=== PATIENT | female | born 1985 | race Caucasian/White ===

== ENCOUNTER 2018-07-25 05:55 | Day surgery (SDC) | payer OTHER ==
[~2018-07-25] VITALS: Ht 160 cm; Wt 83.0 kg
--- NOTE | ~2018-07-25 | OR ---
[facility] [address] [place], [place] [address] Draft DATE OF OPERATION: 07/25/2018 SURGEON: Sweta Tabor MD PREOPERATIVE DIAGNOSIS: Intrauterine at 14+ weeks, status post LEEP x2. POSTOPERATIVE DIAGNOSIS: Intrauterine at 14+ weeks, status post LEEP x2. PROCEDURE: De Anda cerclage. ANESTHESIA: Spinal with IV sedation. ESTIMATED BLOOD LOSS: 5 mL. DRAINS: None. INDICATIONS AND FINDINGS: The patient is a 33-year-old female, 3, para 1, SAB 1, who is now 14 weeks 5 days by early ultrasound, who is being admitted for cerclage as she has undergone a LEEP procedure x2 for CIS. She has undergone a LEEP since her last delivery. Her last delivery was uncomplicated, but at this point, her cervix was very short and it was felt that she may have issues with incompetent cervix and cerclage advised. At the time of surgery, her cervix was indeed short but closed. The uterus was enlarged approximately 15 week size. DESCRIPTION OF PROCEDURE: The patient was prepped and draped in the dorsal lithotomy position. A weighted speculum was placed in the anterior lip of the cervix was visualized. The cervix appeared about 1 cm in length. A 5 mm Mersilene band was then placed in a pursestring manner starting at 12 o'clock as close as possible to the vaginal mucosa and this was placed circumferentially and then tied at 12 o'clock. Following this, the ends of this of the Mersilene band were stitched together with a 2-0 silk. Following this, instruments were removed and the patient was taken to the recovery room in good condition. She tolerated PATIENT NAME: VASILE POLANCO OPERATIVE REPORT DATE OF : [birth year] REPORT #: [id number] PHYSICIAN: SWETA TABOR MD PCP: MACIEJ OLIVARES MD REPORT IS CONFIDENTIAL AND NOT TO BE RELEASED WITHOUT AUTHORIZATION [address] [address] [facility] very well. MD MICHAEL Castrejon/MADDIE /[id number] cc: Rosi Morales Copies: ~ PATIENT NAME: VASILE POLANCO OPERATIVE REPORT DATE OF : [birth year] REPORT #: [id number] PHYSICIAN: SWETA TABOR MD PCP: MACIEJ OLIVARES MD REPORT IS CONFIDENTIAL AND NOT TO BE RELEASED WITHOUT AUTHORIZATION
[~2018-07-25 05:55] MED LIST: PRENATAL GUMMI1 EACH PO; PRENATAL VITAM1 EACH PO; VITAMIN D2000 UNI1 PO
[2018-07-25] MEDS ORDERED: CALCIUM500 M1 PO (06:03)
--- NOTE | 2018-07-25 08:32 | NUR ---
PT RETURNS TO DS ROOM 5 ON RA. PT AWAKE AND ORIENTED. SPINAL AT T8. PT DENIE DMITRIY/NAUSEA. WATER AND FOOD PROVIDED. VSS. CUAUHTEMOC PAD AND MESH UNDIES IN PLACE. NO DRAINAGE NOTED. AT BEDSIDE. WARM BLANKETS AND BEIR HUGGER PROVIDED. CALL LIGHT WITHIN REACH
--- NOTE | 2018-07-25 08:32 | NUR ---
07/25/18 0832 Tiffany Carcamo SN 0747- PT IN PACU. PT SITTING UP IN BED IN [place] CONVERSING WITH STAFF MEMBERS. RESPS EVEN AND UNLABORED, 02 SAT HIGH 90S ON RA. PT DENIES PAIN, NAUSEA AND DIZZINESS AT THIS TIME. 0750- MARIANNA BARNEY AT BEDSIDE EDUCATING PT ON PROCEDURE. PT CONVERSING APPROPRIATELY. ALL QUESTIONS ANSWERED. 0751- DR NOLAND AT BEDSIDE EDUCATING PT ON PROCEDURE. PT ASKING APRORIATE QUESTIONS. ALL QUESTIONS ANSWERED. 0755- PT PROVIDED WITGH PO WATER PER REQUEST. PT SITTING UP IN HIGH FOWLERS TOELRATING WELL AND DRINKING FLUIDS INDEPENDENTLY. RESPS EVEN AND UNALBORED, 02 SAT HGIH 90S ON RA. PT DENIES PAIN NAUSEA AND DIZZINESS AT THIS TIME. PT EDUCATED BY GINNY GOLD ON NEED FOR INDOMETHACIN SUPPOSITORY. PT VERBALZIED UNDERSTANDING AND ALL QUESTIONS ANSWERED. 0757- DR NOLAND AT BEDSIDE AGAIN PER PT REQUEST. EDUCATING PT ON FUTURE PREGNANCIES AFTER THIS PROCEDURE. PT CONVERSING APPROPRIATELY AND ALL QUESTIONS ANSWERED. 0810- PT SITTING UP IN BED IN [place] TOLERATING WELL. RESPS EVEN AND UNLABORED, 02 SAT HIGH 90S ON RA. PT DENIES PAIN NAUSEA AND DIZZINESS AT THIS TIME. 0820- PT OUT OF PACU. TAKEN TO DAY SURGERY BY BED. VERBAL REPORT GIVEN TO GINNY BOYCE. ALL QUESTIONS ANSWERED.
[2018-07-25] MEDS ORDERED: INDOCIN50 MG PO (08:45)
--- NOTE | 2018-07-25 09:10 | NUR ---
IN PT ROOM TO DISCUSS PLAN OF CARE AND FOLLOW UP APPT. PT AGREEABLE. COFFEE PROVIDED. NO OTHER NEEDS AT THIS TIME. CALL LIGHT WITHIN REACH
--- NOTE | 2018-07-25 09:35 | NUR ---
VSS. PT DENIES PAIN/NAUSEA. REPORTS A NEED TO VOID. 2 NURSE ASSIST TO BEDSIDE COMMODE. PT UNABLE TO VOID AT THIS TIME. 2 PERSON ASSIST BACK TO BED. SCDS ON AND APPLIED. CALL LIGHT WITHIN REACH. SPINAL RESOLVING AND NOW AT L1.
--- NOTE | 2018-07-25 10:27 | NUR ---
PT WATCHING TV AND ON CELLPHONE. PT DENIES PAIN AND NO NEW DRAINAGE NOTED ON CUAUHTEMOC PAD. VSS. PT REPORTS FEELING IN THIGHS AND EVERYTHING ABOVE THE KNEE. SPINAL RESOLVING. SCDS REMIAN IN PLACE. AT BEDSIDE. CALL LIGHT WITHIN REACH
--- NOTE | 2018-07-25 12:35 | NUR ---
PT REQUESTING TO USE BEDSIDE COMMODE. PT STANDS AND AMBULATES TO COMMODE AND REPORTS NO DIFFICULTIES. PT VOIDS 300 ML CLEAR YELLOW URINE AND REPORTS BLADDER FEELING EMPTY. PT REPORTS NO NUBNESS AND FEELING HAS RETURNED TO HER LOWER EXTREMITIES. SPINAL RESOLVED. PT DENIES PAIN AND NAUSEA BUT REPORTS SOME GAS PAIN. VSS. IV DC'D WNL. DC CRITERIA MET. DC INSTRUCTIONS WITH PRECAUTIONS PROVIDED TO PT. PT VERBALIZES UNDERTANDING AND DENIES FURTHER QUESTIONS. PRESCRIPTION WITH EDUCATION GIVEN. PT TRANSPORTED IN WHEELCHAIR TO VEHICLE DRIVEN BY IN STBALE CONDITION. TO FOLLOW UP WITH IN 2 WEEKS
== END 2018-07-25 12:30 | disposition home or self-care (01) ==
LOC: DS 05:55 → OPS 05:55 → DS 06:45 → OPS 06:45
PROVIDERS: Obstetrics & Gynecology
PROC: 0UVC7ZZ Restriction of Cervix, Via Natural or Artificial Opening (ICD-10-PCS; principal; 2018-07-25 06:45)
DX: O26.872 Cervical shortening, second trimester (principal); O99.332 Smoking (tobacco) complicating pregnancy, second trimester; F17.210 Nicotine dependence, cigarettes, uncomplicated; O99.212 Obesity complicating pregnancy, second trimester; O99.342 Other mental disorders complicating pregnancy, second trimester; F32.9 Major depressive disorder, single episode, unspecified; Z3A.14 14 weeks gestation of pregnancy; Z79.899 Other long term (current) drug therapy
CPT/HCPCS: 00940; J1100; J1644; J1885; J2405; J2704; J2765; J3010; J7120

== ENCOUNTER 2019-01-14 16:01 | Inpatient (IN) | payer OTHER ==
[~2019-01-14] VITALS: Ht 160 cm; Wt 93.0 kg
[~2019-01-14 16:01] MED LIST changes: +CALCIUM500 M1 PO; +INDOCIN50 MG PO
--- NOTE | 2019-01-14 17:34 | PR ---
[facility] [address] [facility] [place] [place] [address] Signed Progress Notes IP Datetime Report Generated by CPN: 01/14/2019 17:34 PROGRESS NOTES: [id number] Impression: Normal progression of labor Procedures: Sterile Vag Exam Plan: Continue present management Informed Consent Obtain: Vaginal Delivery; Risks, Benefits and Alternatives Discussed VITAL SIGNS: [id number] Vital Signs: Reviewed; Within Normal Limits EXAM: [id number] Dilatation: 4.0 Effacement: 90 Station: -2 Uterine Contractions: q 1 to 4 min MEMBRANES: [id number] Membrane Status: Ruptured Amniotic Fluid Color: Clear Comments: Progressing. Will continue. Fetus A: [id number] FHR Baseline: 135 Variability: Moderate 6-25bpm Accelerations: 15X15 Decelerations: None FHR Category: Category I Presentation: Vertex Comments on Fetus A: No evidence of metabolic acidosis Fetus B: [id number] Signing Physician: Sweta Tabor MD Copies: ~ *Electronically Signed* 01/14/19 1734 SWETA TABOR MD PATIENT NAME: VASILE POLANCO PROGRESS NOTE DATE OF : [birth year] PHYSICIAN: SWETA TABOR MD RPT #: [id number] REPORT IS CONFIDENTIAL AND NOT TO BE RELEASED WITHOUT AUTHORIZATION
--- NOTE | 2019-01-14 19:20 | PR ---
[facility] [address] [place], [place] [address] Signed Progress Notes IP Datetime Report Generated by CPN: 01/14/2019 19:19 PROGRESS NOTES: [id number] Impression: Non-reassuring heart rate Procedures: Scalp Electrode Plan: Continue present management Informed Consent Obtain: Vaginal Delivery; Risks, Benefits and Alternatives Discussed VITAL SIGNS: [id number] Vital Signs: Reviewed; Within Normal Limits EXAM: [id number] Dilatation: 4.0 Effacement: 90 Station: -2 Uterine Contractions: q 1 to 4 min MEMBRANES: [id number] Membrane Status: Ruptured Amniotic Fluid Color: Clear Comments: Bradycardia episode for about 7 minutes after Epidural, with slight decrease in BP, so given Ephedrine; Patient also given O2, increase IV, turned to right side with baseline return to 130's and good variability. electrode applied and adjusted (cord replaced because not pickling up well). At same time patient c/o numbness up to left neck, normal feeling on right. Anesthesia here for evaluation - patient head elevated and Epidural pump turned off. WIll co ntinue to follow Fetus A: [id number] FHR Baseline: 130 Variability: Moderate 6-25bpm Accelerations: 15X15 Decelerations: None FHR Category: Category I Presentation: Vertex Comments on Fetus A: No evidence of metabolic acidosis Fetus B: [id number] Signing Physician: Armando Renteria MD Copies: ~ *Electronically Signed* 01/14/191918 ARMANDO RENTERIA MD PATIENT NAME: VASILE POLANCO PROGRESS NOTE DATE OF : [birth year] PHYSICIAN: ARMANDO RENTERIA MD RPT #: [id number] REPORT IS CONFIDENTIAL AND NOT TO BE RELEASED WITHOUT AUTHORIZATION
--- NOTE | 2019-01-14 19:24 | PR ---
[facility] [address] [facility] [place], [place] [address] Signed Progress Notes IP Datetime Report Generated by CPN: 01/14/2019 19:24 PROGRESS NOTES: [id number] Impression: Reassuring heart rate; Slow Progression of Labor Procedures: Intrauterine Pressure Catheter; Sterile Vag Exam Plan: Continue present management Informed Consent Obtain: Vaginal Delivery; Risks, Benefits and Alternatives Discussed VITAL SIGNS: [id number] Vital Signs: Reviewed; Within Normal Limits EXAM: [id number] Dilatation: 4.0 Effacement: 90 Station: -2 Uterine Contractions: difficult to monitor MEMBRANES: [id number] Membrane Status: Ruptured Amniotic Fluid Color: Clear Comments: Slow progress. FHTs have recovered nicely at this time. Suspect inadequate contractions at this time. Will place IUPC and add pitocin as needed. Fetus A: [id number] FHR Baseline: 125 Variability: Moderate 6-25bpm Accelerations: 15X15 Decelerations: Prolonged FHR Category: Category II Presentation: Vertex Comments on Fetus A: prolonged decel earlier now resolved Fetus B: [id number] Signing Physician: Sweta Tabor MD Copies: ~ *Electronically Signed* 01/14/191923 SWETA TABOR MD PATIENT NAME: VASILE POLANCO PROGRESS NOTE DATE OF : [birth year] PHYSICIAN: SWETA TABOR MD RPT #: [id number] REPORT IS CONFIDENTIAL AND NOT TO BE RELEASED WITHOUT AUTHORIZATION
--- NOTE | 2019-01-16 08:18 | PR ---
[facility] [address] [facility] [place] [place] [address] Signed PP Progress Notes Datetime Report Generated by CPN: 01/16/2019 08:18 SUBJECTIVE: [id number] Pain: Within normal limits Vital Signs: [id number] Vital Signs: Reviewed; Within Normal Limits EXAM: [id number] Cardiovascular: Not Done Respiratory: Not Done Abdomen/Uterus: Abnormal Lochia: Normal Vulva/Perineum: Normal Breasts: Not Done CVA Tenderness: Not Done Extremities: Normal Incision: Not Applicable Progress: Normal Exam Comments: Fundus firm, NT @ U-1. H/H 10.4/32.1, WBC 12, plat 172k IMPRESSION/PLAN/PROCEDURES: [id number] Impression: Normal progression Plan: Discharge Procedures: None Progress Notes: Doing well. She would like D/C today. Signing Physician: Sweta Tabor MD Copies: ~ *Electronically Signed* 01/16/19817 SWETA TABOR MD PATIENT NAME: MONIQUE MELENDEZVASILE PROGRESS NOTE DATE OF : [birth year] PHYSICIAN: SWETA TABOR MD RPT #: [id number] REPORT IS CONFIDENTIAL AND NOT TO BE RELEASED WITHOUT AUTHORIZATION
== END 2019-01-16 13:15 | disposition home or self-care (01) | DRG 807 ==
LOC: FBCO 16:01 → FBC 16:15
PROVIDERS: ADMIT Obstetrics & Gynecology
PROC: 10H07YZ Insertion of Other Device into Products of Conception, Via Natural or Artificial Opening (ICD-10-PCS; 2019-01-14)
PROC: 00HU33Z Insertion of Infusion Device into Spinal Canal, Percutaneous Approach (ICD-10-PCS; 2019-01-14)
PROC: 3E0R3BZ Introduction of Anesthetic Agent into Spinal Canal, Percutaneous Approach (ICD-10-PCS; 2019-01-14)
PROC: 10E0XZZ Delivery of Products of Conception, External Approach (ICD-10-PCS; principal; 2019-01-15)
DX: O99.334 Smoking (tobacco) complicating childbirth (principal); Z37.0 Single live birth; F17.290 Nicotine dependence, other tobacco product, uncomplicated; Z3A.39 39 weeks gestation of pregnancy; O34.43 Maternal care for other abnormalities of cervix, third trimester; O99.214 Obesity complicating childbirth; E66.9 Obesity, unspecified; O76 Abnormality in fetal heart rate and rhythm complicating labor and delivery; O24.429 Gestational diabetes mellitus in childbirth, unspecified control; O74.8 Other complications of anesthesia during labor and delivery; R00.1 Bradycardia, unspecified
CPT/HCPCS: 01960; 36415; 85027; A9270; J2590; J2795; J7121

== ENCOUNTER 2019-11-15 14:17 | Emergency (ER) | payer OTHER ==
[~2019-11-15] VITALS: Ht 160 cm; Wt 73.9 kg
[2019-11-15] MEDS ORDERED: NORCO 5-325 TA1 EACH PO (18:33)
[2019-11-16] MEDS ORDERED: TYLENOL325 M1 PO (08:50)
== END 2019-11-15 18:40 | disposition short-term general hospital (02) ==
LOC: ED 14:17
DX: K80.42 Calculus of bile duct with acute cholecystitis without obstruction (principal); F17.200 Nicotine dependence, unspecified, uncomplicated; Z79.899 Other long term (current) drug therapy
CPT/HCPCS: 76705; 80053; 81001; 83690; 85025; 96361; 99285-25; J1885; J2405; J7030

== ENCOUNTER 2019-11-16 08:13 | Inpatient (IN) | payer OTHER ==
[~2019-11-16] VITALS: Ht 157.5 cm; Wt 73.9 kg
--- NOTE | ~2019-11-16 | DS ---
[facility] [address] [place], [place] [address] Draft ADMISSION DATE: 11/16/2019 DISCHARGE DATE: 11/19/2019 REASON FOR ADMISSION: This 34-year-old white woman presented to the hospital on November 15, 2019 to the ER, where she was evaluated and found to have gallstones within the gallbladder and questionable distal common duct filling defect. She was evaluated by the local surgeon, Dr. Taiwo Silva. She ultimately was discharged home and returned the following day for elective laparoscopic cholecystectomy. She was admitted for that purpose. PHYSICAL EXAMINATION: GENERAL: Shows a well-developed, well-nourished, white woman without sign of severe distress. CHEST: Clear. HEART: Regular. ABDOMEN: Soft and with some mild epigastric and right subcostal tenderness, but no mass and no ascites. EXTREMITIES: Showed no clubbing, cyanosis, or edema. LABORATORY DATA: Emergency room laboratory studies showed normal liver enzymes and other labs including CBC. HOSPITAL COURSE: The patient returned to the hospital, anticipating laparoscopic cholecystectomy as an outpatient. She was under the care of Dr. Taiwo Silva at that time. Laparoscopic cholecystectomy was undertaken, which showed a markedly inflamed infundibulum and cystic duct, which took a fair amount of time for safe dissection ultimately identifying the cystic duct. Attempts by Dr. iSlva for laparoscopic common duct exploration were unsuccessful following a cholangiogram that did show a relatively large stone in the distal common bile duct. I was summoned to assist and care was transferred to my service at that point. Various attempts at transcystic common duct exploration were unsuccessful and on that basis, conversion to open cholecystectomy was undertaken. This allowed for open common duct exploration. Extraction of a mulberry 8 mm stone in the distal common duct was accomplished, though was quite challenging as the stone appeared to be quite markedly impacted in the distal duct. Completion T-tube cholangiogram was normal with no sign of filling defect, biliary anomalies, or other problem. An accessory drain as well as a T-tube was left in place. Postoperatively, she had marked improvement of her symptoms. Her postop day #1, lab study showed marked elevation of the liver enzymes and bilirubin was 4.3. A Mckoy catheter had been placed PATIENT NAME: VASILE POLANCO DISCHARGE SUMMARY DATE OF : [birth year] REPORT #: [id number] PHYSICIAN: EHSAN DUNCAN MD PCP: RAUL CARDENAS PA-C REPORT IS CONFIDENTIAL AND NOT TO BE RELEASED WITHOUT AUTHORIZATION [facility] [address] [place], [place] [address] Draft at the conclusion of the operation due to this prolonged nature. She had progressive improvement with her liver enzymes returning to normal. On postoperative day #2, her T-tube was capped off and she continued to improve, tolerating a regular diet, having no nausea or other problems. The accessory drain showed no sign of bile leak and was removed prior to discharge. She was discharged home at this time understanding a plan for a completion T-tube cholangiogram in the next 3 to 4 weeks and removal of the T-tube if it is normal as I expect it will be at that time. She is instructed to lift no more than 20 pounds for the next 4 weeks. She is recommended to ambulate on a routine basis and should have no restrictions in her diet. DISCHARGE MEDICATIONS: Include Motrin 600 mg p.o. q.6 hours as needed for pain as well as Tylenol 1 g p.o. q.6 hours as needed for pain. She declines any further use of opoid medication (previously Percocet). She will resume her usual medications as needed, which has included vitamin. She will no longer be taking indomethacin or [place] or her other Tylenol dosage. DISCHARGE DIAGNOSES: 1. Acute calculous cholecystitis with choledocholithiasis, status post laparoscopy with attempted laparoscopic common duct exploration with conversion to open cholecystectomy, open common duct exploration, flexible total choledochoscopy, and extraction of distal common duct stone, surgeon-directed fluoroscopy, and completion T-tube cholangiogram. 2. 6 months. 3. Chronic right subcostal abdominal pain. 4. Asymptomatic left possible Bartholin gland cyst. We will direct the patient to her manager risk, Dr. Tabor, for further evaluation of this following our completion of her biliary tract treatment. MD GAYE Puente/CECEL /[id number] cc: Sweta Tabor MD PATIENT NAME: VASILE POLANCO DISCHARGE SUMMARY DATE OF : [birth year] REPORT #: [id number] PHYSICIAN: EHSAN DUNCAN MD PCP: RAUL CARDENAS PA-C REPORT IS CONFIDENTIAL AND NOT TO BE RELEASED WITHOUT AUTHORIZATION [address] [address] Draft JESUS Webb MD Copies: SWETA TABOR MD, MILTON WALLACE MD ~ PATIENT NAME: VASILE POLANCO DISCHARGE SUMMARY DATE OF : [birth year] REPORT #: [id number] PHYSICIAN: EHSAN DUNCAN MD PCP: RAUL CARDENAS PA-C REPORT IS CONFIDENTIAL AND NOT TO BE RELEASED WITHOUT AUTHORIZATION
[~2019-11-16 08:13] MED LIST changes: +NORCO 5-325 TA1 EACH PO
[2019-11-16] MEDS ORDERED: TYLENOL325 M1 PO (08:50)
--- NOTE | 2019-11-17 09:38 | OR ---
[facility] [address] [place], [place] [address] Signed DATE OF OPERATION: 11/16/2019 SURGEON: Taiwo Silva MD Partial Operative Summary PREOPERATIVE DIAGNOSIS: Calculous cholecystitis, suspected common bile duct stone. POSTOPERATIVE DIAGNOSIS: Calculous cholecystitis, Hydrops of the gallbladder with choledocholithiasis. PROCEDURES: 1. Laparoscopic cholecystectomy with cholangiography, attempted laparoscopic CBDE (Shira). 2. Conversion to open completion cholecystectomy with common bile duct exploration, T-tube drainage (Shira Duncan). ANESTHESIA: General endotracheal. ESTIMATED BLOOD LOSS: <25 mL. INDICATIONS FOR THE PROCEDURE: This 34-year-old woman presented with upper abdominal pain radiating into her elly-scapular region for the prior week, and ultrasonography confirmed gallbladder calculi in addition to a 5 mm lesion in the distal common bile duct suspicious for an impacted stone. FINDINGS AND DESCRIPTION OF PROCEDURE: The patient was maintained supine while time was paused to verify her identity, proposed procedure and safety checklist. General endotracheal anesthesia was induced, the abdomen was widely prepared with chlorhexidine solution and draped, then local anesthetic was delivered into the infraumbilical region and an incision was made through the inferior umbilical ring and extended by blunt dissection to the fascia, incising the fascia vertically and placing a [id number] 0-Vicryl suture in the fascia. The peritoneal cavity was entered by blunt dissection and both palpation and visual inspection confirmed presence within the Electronically Signed By: TAIWO SILVA MD 11/17/19 0938 PATIENT NAME: VASILE POLANCO OPERATIVE REPORT DATE OF : [birth year] REPORT #: [id number] PHYSICIAN: TAIWO SILVA MD PCP: RAUL CARDENAS PA-C REPORT IS CONFIDENTIAL AND NOT TO BE RELEASED WITHOUT AUTHORIZATION [facility] [address] [place], [place] [address] Signed peritoneal cavity. The Lili trocar was next inserted and anchored to the fascia with the 0-Vicryl suture. The operative laparoscope was inserted and the subjacent viscera inspected, confirming absence of iatrogenic injuries. A pneumoperitoneum was established with CO2 insufflation and accessory 5 mm trocars were placed in the epigastric and right subcostal regions. A tense and distended gallbladder was identified, with grossly normal features of the anterior liver surface, stomach, ascending colon and omentum. The gallbladder was decompressed of clear fluid, indicating hydrops of the gallbladder. Clamps were applied to retract the gallbladder, then dissection was conducted upon the infundibulum and triangle of Calot, readily identifying the cystic artery but not clearly delineating the cystic duct due to extensive fibrosis and thickening that distorted the anatomy in this region. The cystic artery was double clipped and transected to facilitate dissection, elevating the gallbladder from the cystic plate midway along the fundus, confirming absence of additional ductal structures entering directly into the posterior gallbladder. A occlusive 0-Vicryl ligature was applied around the distal infundibulum and cholangiography performed with a taut catheter introduced through a lateral cystic duct incision, securing the catheter with an Villanueva clamp. Cholangiography was performed with fluoroscopy, illustrating a dilated, tortuous but patent cystic duct, dilation of the common bile duct and abrupt occlusion distally by a single impacted calculus. The hepatic duct and secondary hepatic radicles appeared patent and unremarkable for additional filling defects. A flexible guidewire was passed into the cystic duct and laparoscopic common bile duct exploration with the ureteroscope was attempted, but there was technical difficulty encountered with introducing assorted guidewires, balloon dilators and the choledochoscope due to occlusion of the common bile duct in addition to tortuosity of the cystic duct, that proved unsuccessful in clearly visualizing and dislodging the impacted stone, despite infusion of additional contrast via the choledochoscope that fluoroscopically confirmed advancement to the presumed location of the stone. Dr. Duncan was next contacted and asked to assist with the exploration, with which he readily agreed. Further attempts to manipulate guidewires, balloon catheters and the Electronically Signed By: TAIWO SILVA MD 11/17/19 0938 PATIENT NAME: VASILE POLANCO OPERATIVE REPORT DATE OF : [birth year] REPORT #: [id number] PHYSICIAN: TAIWO SILVA MD PCP: RAUL CARDENAS PA-C REPORT IS CONFIDENTIAL AND NOT TO BE RELEASED WITHOUT AUTHORIZATION [address] [address] Signed endoscope in the cystic and common bile duct structures were again unsuccessful. The decision was therefore made to convert to an open completion cholecystectomy and common bile duct exploration. (Kindly refer to Dr. Duncan's summation note for additional details.) Taiwo Silva MD MWK/MODL /[id number] cc: Ehsan Duncan MD Copies: EHSAN DUNCAN MD ~ Electronically Signed By: TAIWO SILVA MD 11/17/19 0938 PATIENT NAME: MONIQUE MELENDEZVASILE OPERATIVE REPORT DATE OF : [birth year] REPORT #: [id number] PHYSICIAN: TAIWO SILVA MD PCP: RAUL CARDENAS PA-C REPORT IS CONFIDENTIAL AND NOT TO BE RELEASED WITHOUT AUTHORIZATION
--- NOTE | 2019-11-17 13:10 | OR ---
[facility] [address], [place] [address] Signed DATE OF OPERATION: 11/16/2019 SURGEON: Ehsan Duncan MD PREOPERATIVE DIAGNOSES: 1. Acute calculous cholecystitis. 2. Possible common duct stone. POSTOPERATIVE DIAGNOSES: 1. Acute calculous cholecystitis (severe). 2. Distal common bile duct stone. PROCEDURES: 1. Laparoscopic cholecystectomy with conversion to open cholecystectomy, prolonged, complicated, and difficult. 2. Flexible choledochoscopy with attempt at laparoscopic common duct exploration with conversion to open common duct exploration and extraction of distal common duct stone. 3. A completion T-tube cholangiogram. 4. SURGEON directed flouroscopy PLATING ENGINEER: Taiwo Silva MD. (locum surgeon). ANESTHESIA: General endotracheal; Matt Mckeon CRNA and postoperative tap block. INDICATIONS: This 34-year-old white woman, presented to the emergency room on the November 14 and was evaluated, having been noted to have a vague right subscapular and central back pain for the previous 1-1/2 weeks that waxed and waned. She had persistent burning discomfort. She is noted to have fatty food intolerance in the past week. She generally is in good health otherwise. She has undergone appendectomy in childhood. There is family history of biliary disease in her father and maternal aunt. An ultrasound was performed at the time of her emergency room evaluation showing multiple gallstones, but without gallbladder distention or pericholecystic fluid collection and common bile duct caliber 7 mm with the description of the possible 5 mm echogenic focus (gallstone) in the distal common duct. She was presented with the option of admission to hospital versus released to home anticipating outpatient cholecystectomy. She then presented to the [facility] today anticipating cholecystectomy. The various risks of operative management were reviewed by Dr. Silva with the patient including the risks of bleeding, infection, bile duct injury, need for ERCP, possible open common duct Electronically Signed By: EHSAN DUNCAN MD 11/17/19 1310 PATIENT NAME: VASILE POLANCO OPERATIVE REPORT DATE OF : [birth year] REPORT #: [id number] PHYSICIAN: EHSAN DUNCAN MD PCP: RAUL CARDENAS PA-C REPORT IS CONFIDENTIAL AND NOT TO BE RELEASED WITHOUT AUTHORIZATION [facility] [address], [place] [address] Signed exploration and so on. I was advised by Dr. Silva earlier in the day today that if common duct exploration was needed by laparoscopic approach that he may require assistance or further transfer of care to myself as a local surgeon rather than [facility] surgeon, and I was summoned during the course of operation, noting that common duct exploration might be required and his attempts at laparoscopic common duct exploration were not progressing well. On that basis, care was assumed intraoperatively and as per Dr. Silva, I became the primary surgeon. FINDINGS: The gallbladder was markedly inflamed. The liver appeared normal. Only minimal fatty infiltration was noted. My point of joining the operation, the cystic duct was well identified. The critical view of safety had been observed. Review of the cholangiogram showed a distal common duct stone quite obviously. There was flow of contrast around the stone into the duodenum in a faint way. My attempts at passage of the flexible choledochoscope through the cystic duct to allow for endoscopic extraction were unsuccessful. Mindful of the logistics of treatment of the common bile duct stone, conversion to open operation was undertaken. It was quite clear that the stone was quite impacted in the distal duct. It measured about 8 mm and was a mulberry type stone. The gallbladder itself was quite markedly inflamed and there were several yellow mulberry stones in that as well. Using various techniques and ultimately the flexible choledochoscope with a basket, the stone was extracted completely. A completion T-tube cholangiogram showed excellent flow of contrast in the biliary tree with prompt emptying into the duodenum with no residual abnormalities and certainly no known complication. DESCRIPTION OF PROCEDURE: As mentioned previously, I joined the operation when attempts at laparoscopic common duct exploration had stalled. The epigastric port, which was a typical port was exchanged for a taut catheter type trocar and the choledochotomy in the cystic duct appeared of reasonable size to allow for passage of the scope. Gentle attempts at passage of a flexible choledochoscope into the cystic duct were met with resistance as had been noted by Dr. Silva. As the cystic duct had not been dilated in any way, a flexible wire was passed down the cystic duct under fluoroscopic control into the duodenum. It was somewhat challenging to get into the cystic duct initially, likely related to the valves of the cystic duct. Once accomplished, however, an ERCP catheter was passed over the wire and carefully manipulated into the cystic duct itself. The radiopaque markers were well positioned to allow for dilation of the cystic duct, which was undertaken under fluoroscopic control. The catheter was then removed and repeat Electronically Signed By: EHSAN DUNCAN MD 11/17/19 1310 PATIENT NAME: VASILE POLANCO OPERATIVE REPORT DATE OF : [birth year] REPORT #: [id number] PHYSICIAN: EHSAN DUNCAN MD PCP: RAUL CARDENAS PA-C REPORT IS CONFIDENTIAL AND NOT TO BE RELEASED WITHOUT AUTHORIZATION [address] [place], [place] [address] Signed attempts at passage of the choledochoscope were undertaken, however, despite dilation of the duct and so forth it simply could not be passed beyond this. Various attempts at contrast studies and so forth to better define the duct were still unsuccessful allowing for passage of the choledochoscope or even really any basket device. The choledochotomy was made further down the cystic duct, still well out of the way of the common bile duct and repeated attempts were still unsuccessful. Given the impacted stone and its size and mindful of limited local resources for ERCP (none within 1 hour of travel at minimum), it was elected to proceed to open cholecystectomy with common duct exploration. The trocars were removed under direct visualization showing no sign of bleeding. The infraumbilical fascial incision was reapproximated with 0 Vicryl. A right subcostal incision was made in the standard way, transecting the anterior rectus sheath, rectus abdominis muscle, and the posterior rectus sheath. The abdomen was entered and a Bookwalter retractor was used to afford exposure. A good dissection of the infundibulum of the gallbladder and the cystic duct was noted. A ring clamp was applied to the apex of the gallbladder and the gallbladder dissected free from the liver using electrocautery. The cystic duct remnant was doubly ligated with 2-0 silk ties. The peritoneum overlying the common bile duct was incised carefully. There was inflammation and edema; the common bile duct was well identified. Two stay sutures of 4-0 PDS were placed along the common bile duct and the common bile duct incised with an 11 blade, allowing for egress of biliary fluid. The choledochotomy was extended inferiorly with Chu scissors and irrigation was undertaken of the common duct. Withdrawal of the common duct stone was not forthcoming. The flexible choledochoscope was manipulated into the biliary tree and the proximal biliary tree was normal in every way. The scope was passed distally, however, poor visualization, irrigation, and other technical factors precluded use of the ureteroscope and therefore, a more typical flexible choledochoscope was obtained and examination undertaken. This was more easily passed distally allowing for visualization of an impacted mulberry shaped stone. The usual maneuvers with a flexible wire were completely unsuccessful in grasping the stone. The stone appeared to be markedly impacted in the common bile duct distally. The scope was removed and Diony stone forceps were used to no avail. Ultimately,stone spoons were used and also unsuccessful. Re-attempt of extraction of the common bile duct stone was undertaken, at this time with the spiral basket and with a two man technique Electronically Signed By: EHSAN DUNCAN MD 11/17/19 1310 PATIENT NAME: VASILE POLANCO OPERATIVE REPORT DATE OF : [birth year] REPORT #: [id number] PHYSICIAN: EHSAN DUNCAN MD PCP: RAUL CARDENAS PA-C REPORT IS CONFIDENTIAL AND NOT TO BE RELEASED WITHOUT AUTHORIZATION [address] Silva with the basket and myself manipulating the scope. Ultimately, the mulberry stone was able to be rolled back into the common duct, ultimately grasped and extracted. that was difficult to be sure. Irrigation was undertaken and reinspection of the common bile duct proximally and distally showed no sign of impediment to flow. Additionaly there was no neoplasm or other problem. A #14 T-Tube was cut to the appropriate configuration and inserted into the common duct and the choledochotomy secured with interrupted 4-0 PDS. A completion T-tube cholangiogram was then performed. The T-tube cholangiogram showed free flow of contrast in biliary tree with prompt emptying into the duodenum. No sign of filling defect or other abnormality. There was no leakage at the insertion site either. Through one of the previous 5 mm trocar sites, the T-tube was delivered to the outside of the abdomen and secured with nylon suture. A 7 mm flat Marcell drain was placed in the subhepatic space, trimmed to the appropriate length and additionally secured. Irrigation was undertaken. There was no sign of bleeding or bile leak or other problem. The posterior rectus sheath was reapproximated with running PDS suture. Hemostasis was assured in the rectus muscle with electrocautery. The anterior rectus sheath was closed with running PDS suture. Irrigation was undertaken. The skin was closed with running subcuticular 3-0 Vicryl. The trocar sites were secured with interrupted 3-0 Vicryl as well. Steri-Strips were applied and Opsites as necessary. Two large Opsites were applied individually to the T-tube as well as to the drain. At conclusion of procedure, tap block was performed by an international specialist. Additionally, a Mckoy catheter was placed given the prolonged nature of the operation. An 800 mL of bilious appearing urine was noted. The patient was ultimately extubated and transferred to recovery room in good condition having suffered no complication. The operation was prolonged, complicated, and difficult as previously noted, lasting 4 times longer than usual. MD GAYE Puetne/CECEL /[id number] Electronically Signed By: EHSAN DUNCAN MD 11/17/19 1310 PATIENT NAME: VASILE POLANCO OPERATIVE REPORT DATE OF : [birth year] REPORT #: [id number] PHYSICIAN: EHSAN DUNCAN MD PCP: RAUL CARDENAS PA-C REPORT IS CONFIDENTIAL AND NOT TO BE RELEASED WITHOUT AUTHORIZATION [address] [address] Signed cc: MD Leeanne Gaitan PA-C Copies: ~ Electronically Signed By: EHSAN DUNCAN MD 11/17/19 1310 PATIENT NAME: VASILE POLANCO OPERATIVE REPORT DATE OF : [birth year] REPORT #: [id number] PHYSICIAN: EHSAN DUNCAN MD PCP: RAUL CARDENAS PA-C REPORT IS CONFIDENTIAL AND NOT TO BE RELEASED WITHOUT AUTHORIZATION
--- NOTE | 2019-11-18 15:12 | PATH ---
[facility] [facility] [address] [facility] [place], [place] [address] Signed ORDERING PHYSICIAN: Taiwo Silva MD PATIENT NAME: VASILE POLANCO GENDER: Frederic : 1985 SPECIMEN(S): MOLECULAR PATHOLOGY RESULTS: SARS-CoV-2 Not Detected ADDITIONAL NOTES.: The [place] Fusion SARS-CoV-2 Assay is a multiplex real-time PCR (RT-PCR) in vitro diagnostic test intended for the qualitative detection of RNA from SARS-CoV-2 from individuals who meet COVID-19 clinical and/or epidemiological criteria. In general, SARS-CoV-2 RNA can be detected during the acute phase of infection. Positive results indicate the presence of SARS-CoV-2 RNA. Clinical correlation with patient history and other diagnostic information is necessary to determine patient infection status. Positive results do not rule out bacterial infection or co-infection with other viruses. Negative results do not preclude SARS-CoV-2 infection and should not be used as the sole basis for patient management decisions. Negative results must be combined with other clinical observations, patient history, and epidemiological information. The [place] Fusion SARS-CoV-2 Assay is not yet approved or cleared by the [place] FDA. When there are no FDA-approved or cleared tests available, and other criteria are met, FDA can make tests available under an emergency access mechanism called an Emergency Use Authorization (EUA). The EUA for this test is supported by the [place] of Health and Human Service's (HHS's) declaration that circumstances exist to justify the emergency use of in vitro diagnostics for the detection and/or diagnosis of the virus that causes COVID-19. This EUA will remain in effect for the duration of the COVID-19 declaration justifying emergency of IVDs, unless it is terminated or revoked by FDA, after which the test may no longer be used. The [place] Fusion SARS-CoV-2 Assay is for use only under EUA in US laboratories certified under the Clinical Laboratory Improvement Amendments of 1988 (CLIA) to perform high complexity tests. [facility] is certified under CLIA to perform high complexity PATIENT NAME: VASILE POLANCO PATHOLOGY DATE OF : [birth year] REPORT #: [id number] PHYSICIAN: AYAKA GAMBOA PCP: RAUL CARDENAS PA-C REPORT IS CONFIDENTIAL AND NOT TO BE RELEASED WITHOUT AUTHORIZATION [address] [address] Signed clinical laboratory testing. PERFORMING LABORATORY.: Molecular testing was performed by [facility] [address] [place], [place] [address], [place] [address] (Agricultural Specialist: Mayito Abraham D.O.; CLIA#: [id number]) Diagnostician: System Interface Pathologist Electronically Signed 11/17/2019 Copies: ~ PATIENT NAME: VASILE POLANCOE PATHOLOGY DATE OF : [birth year] REPORT #: [id number] PHYSICIAN: AYAKA GAMBOA PCP: RAUL CARDENAS PA-C REPORT IS CONFIDENTIAL AND NOT TO BE RELEASED WITHOUT AUTHORIZATION
[2019-11-19] MEDS ORDERED: ACETAMINOPHEN500 MG PO (14:43)
[2019-11-19] MEDS ORDERED: IBUPROFEN600 MG PO (14:43)
[2019-11-19] MEDS ORDERED: CIPRO500 MG PO (14:52)
== END 2019-11-19 17:00 | disposition home or self-care (01) | DRG 412 ==
LOC: DS 08:13 → MS 18:50 → DS 18:51 → MS 18:52
PROVIDERS: Surgery; ADMIT Surgery; ATTEND Surgery
PROC: 0FC90ZZ Extirpation of Matter from Common Bile Duct, Open Approach (ICD-10-PCS; 2019-11-16)
PROC: 0FJ44ZZ Inspection of Gallbladder, Percutaneous Endoscopic Approach (ICD-10-PCS; 2019-11-16)
PROC: BF101ZZ Fluoroscopy of Bile Ducts using Low Osmolar Contrast (ICD-10-PCS; 2019-11-16)
PROC: 3E0T3BZ Introduction of Anesthetic Agent into Peripheral Nerves and Plexi, Percutaneous Approach (ICD-10-PCS; 2019-11-16)
PROC: 3E0T33Z Introduction of Anti-inflammatory into Peripheral Nerves and Plexi, Percutaneous Approach (ICD-10-PCS; 2019-11-16)
PROC: 0FT40ZZ Resection of Gallbladder, Open Approach (ICD-10-PCS; principal; 2019-11-16 12:00)
DX: K80.46 Calculus of bile duct with acute and chronic cholecystitis without obstruction (principal); K82.1 Hydrops of gallbladder; Z20.828 Contact with and (suspected) exposure to other viral communicable diseases; G89.18 Other acute postprocedural pain; F17.210 Nicotine dependence, cigarettes, uncomplicated; N75.0 Cyst of Bartholin's gland; Z53.31 Laparoscopic surgical procedure converted to open procedure
CPT/HCPCS: 00790; 36415; 64450; 74300; 76942; 80053; 82247; 82465; 83615; 84100; 84478; 84550; 84703; 85014; 85025; 85032; 85049; 99406; A9270; C1726; C1757; C1769; J0131; J0330; J0690; J0696; J1100; J1170; J1644; J1885; J2001; J2250; J2270; J2405; J2550; J2704; J3010; J3475; J7030; J7121; Q9967